=== PATIENT | female | born 1970 | race Asian ===

== ENCOUNTER → 2016-07-28 | Outpatient (CLI) | payer BC ==
--- NOTE | 2016-07-28 10:54 | USB ---
Reason for exam: clinical finding. Indicated problem(s): palpable abnormality in the left breast. Physical Findings: Nurse did not find any significant physical abnormalities on exam. US Breast LT Left breast ultrasound including all four quadrants, the retroareolar region and axilla demonstrates a 0.2 x 0.3 x 0.2cm oval lesion too small to characterize at 2 o'clock, a 0.7 x 0.5 x 0.5cm oval, cystic lesion at 4 o'clock and a 4.3 x 3.8 x 3.2cm oval, mixed lesion at the retroareolar position. These results were verbally communicated with the patient and result sheet given to the patient on 07/28/16. ASSESSMENT: Suspicious, BI-RAD 4 RECOMMENDATION: Aspiration of the left breast. Called Dr. Jensen with mammographic findings and has scheduled an appointment for the patient for 08/17/16 at 10:[address] Faye. Aspiration scheduled for 08/03/16 at 1:00. PRELIMINARY REPORT CALLED AND FAXED TO DR. FAYE ON 08/07/16 AT 300/TP.
== END | disposition home or self-care (01) ==
LOC: RADUSWWP 07:27
PROVIDERS: ATTEND Obstetrics & Gynecology
DX: R92.8 Other abnormal and inconclusive findings on diagnostic imaging of breast (principal); N63 Unspecified lump in breast

== ENCOUNTER → 2016-08-03 | Day surgery (SDC) | payer BC ==
[~2016-08-03] MED LIST: ALPRAZolam 0.25 MG TAB ONE; LIDOCAINE 1% INJ 10MG/ML (20 ML MDV) ONE; SODIUM BICARB 4% 5 ML VIAL (0.48 MEQ/ML) ONE
--- NOTE | 2016-08-03 15:09 | USB ---
EXAMINATION TYPE: US breast aspiration single LT, MG diagnostic mammo LT, post procedure mammogram. DATE OF EXAM: 08/03/2016 1:45 PM CLINICAL HISTORY: 46-year-old female abnormal mammogram and palpable abnormality left breast. TECHNIQUE: Ultrasound guided left breast cyst aspiration. COMPARISON: 07/28/2016 and 02/25/2016. FINDINGS: The procedure of ultrasound guided cyst aspiration was explained to the patient. Benefits, alternatives, and risks were discussed. An informed consent was then obtained. The patient was placed in supine positioning for imaging and for the procedure. The overlying skin was prepped and draped in usual sterile fashion. Lidocaine buffered with bicarbonate was used as anesthetic into the skin and subcutaneous tissue up to area of concern in the left breast. Under ultrasound guidance, a standard 18-gauge spinal needle was inserted into the left breast cyst and aspiration yielded 27 mL of murky fluid. Fluid was collected and sent to the lab for analysis. Following this, a ribbon clip was left at the site of aspiration and collapsed cyst. The patient tolerated the procedure well without any immediate complication. The patient was kept in the radiology department for short stay after the procedure and then discharged home in stable condition. Postprocedure mammogram shows ribbon clip in place with interval disappearance of the large left breast mass. IMPRESSION: Successful, uncomplicated ultrasound guided left breast cyst aspiration; fluid analysis is pending. Pathology Results: High Risk BREAST, LEFT, ASPIRATE: PENDING CONSULTATION, SEE ADDENDUM/FINAL DIAGNOSIS. ADDENDUM REPORT BREAST, LEFT, FINE NEEDLE ASPIRATION-CYTOSPIN PREPARATIONS AND CALL BLOCK ([id number]; 08/03/2016) ATYPICAL CELLS PRESENT. Recommendation Surgical consult of the left breast. AVERY
== END ==
LOC: RADUSWWP 11:59
PROVIDERS: ATTEND Surgery
DX: N60.02 Solitary cyst of left breast (principal); R92.8 Other abnormal and inconclusive findings on diagnostic imaging of breast
CPT/HCPCS: 88108; 88305; 76942; 19000; G0206; A4648; J2001

== ENCOUNTER 2016-08-25 06:50 | Day surgery (SDC) | payer BC ==
--- NOTE | 2016-08-18 06:19 | HP ---
DATE OF ADMISSION: CHIEF COMPLAINT: Left breast cyst. HISTORY OF PRESENT ILLNESS: The patient is a 46-year-old female who underwent a recent aspiration of a large left breast cyst measuring 4.5 cm after the patient began complaining of a new mass in the left breast that began rather abruptly. She does have a history of cysts in the past. She has had one excised when [place] was [place] the [place] in the past. That was benign. The recent aspiration; however, revealed some atypical cells suspicious for possible underlying malignancy. A clip was left at that time. The patient was able to notice some recurrence of the cystic lesion although not nearly as large. She denies any family history of breast cancer. Her last mammogram in February of last year was normal. PAST MEDICAL HISTORY: Denies. Past surgical history is breast biopsy. MEDICATIONS: None. ALLERGIES: None. PHYSICAL EXAM: GENERAL: Well-developed, well-nourished female in no distress. HEENT is normocephalic. Sclerae anicteric. Right breast without mass or adenopathy. Left breast with a mass present at the 12 o'clock location, measuring about 2.5 x 1.5 cm, minimally tender. IMPRESSION: A 46-year-old female with atypical left breast cyst. PLAN: Will proceed with excision of the cyst with wire localization and guidance. The risks of bleeding, infection, numbness, dimpling, wound formation, nipple discharge and potential need for additional surgery were discussed. She understands and wishes to proceed.
[2016-08-22 14:21] VITALS: BMI 20.2
[~2016-08-25 06:50] MED LIST changes: -ALPRAZolam 0.25 MG TAB ONE; +DEXAMETHASONE SOD PHOSPHATE 10 MG/ML 1 ML VIAL IV ONE; +HEPARIN SODIUM,PORCINE 5,000 UNIT/ML 1 ML VIAL SQ ONE; +HYDROmorphone 1 MG/ML 1 ML SYRINGE IVP PRN; +LACTATED RINGERS 1,000 ML IV SCH; -LIDOCAINE 1% INJ 10MG/ML (20 ML MDV) ONE; +MIDAZOLAM 2 MG/2 ML VIAL IV PRN; +ONDANSETRON 4 MG/2 ML VIAL IVP ONE; +Pre Op ABX Message 1 EACH MISC MISCELLANE ONE; +SCOPOLAMINE 1.5MG/72HR PATCH TRANSDERM ONE; -SODIUM BICARB 4% 5 ML VIAL (0.48 MEQ/ML) ONE
[2016-08-25] MEDS ORDERED: ALPRAZolam 0.5 MG TAB PO ONE ×2 (07:16)
[2016-08-25] MEDS ORDERED: BUPIVACAIN-EPI 0.25%-1:200,000 30 ML VIAL SQ ONE ×2 (10:31→11:32)
[2016-08-25] MEDS ORDERED: fentaNYL (PF) 50 MCG/ML 2 ML AMP ONE (11:10)
[2016-08-25] MEDS ORDERED: MIDAZOLAM 2 MG/2 ML VIAL ONE (11:10)
[2016-08-25] MEDS ORDERED: SUCCINYLCHOLINE CHLORIDE 100 MG/5 ML SYR IV ONE (11:10)
[2016-08-25] MEDS ORDERED: PROPOFOL 10 MG/ML 20 ML VIAL IV ONE (11:10)
[2016-08-25] MEDS ORDERED: LIDOCAINE 1% INJ 10MG/ML (20 ML MDV) ONE ×2 (11:10→13:28)
[2016-08-25] MEDS ORDERED: LACTATED RINGERS 1,000 ML IV ONE ×3 (11:36)
[2016-08-25] MEDS ORDERED: BUPIVACAINE (PF) 0.25% 30 ML VIAL SQ ONE (11:57)
--- NOTE | 2016-08-25 11:59 | MM ---
EXAMINATION TYPE: MG pre op needle loc LT, MG surgical specimen LT DATE OF EXAM: 08/25/2016 9:10 AM COMPARISON: Prior mammogram August 03, 2016 and older studies. CLINICAL HISTORY: Ultrasound-guided aspiration with atypical pathology results. TECHNIQUE: Needle localization with wire placement and surgical excision of area of concern in the left breast. FINDINGS: The procedure of needle localization with wire placement and than surgical excision was explained to the patient. Benefits, alternatives, and risks were discussed. An informed consent was then obtained. The shortest pathway for procedure was chosen. Shortest pathway was felt to be medial approach. The overlying skin was prepped and draped in usual sterile fashion. Lidocaine buffered with bicarbonate was used as anesthetic into the skin and subcutaneous tissue up to the level of area of concern. A 5 cm needle was used. It was placed via a medial approach under mammographic guidance. Subsequent 90 degrees mammogram show the needle to be in satisfactory position relative to the targeted area. At this point, wire was placed and the needle was withdrawn. The wire was fixed to patient's skin. Images were marked for surgeon by technologist. The patient tolerated the procedure well without any immediate complication. The patient was kept in the radiology department for short stay after the procedure and then taken to surgery for surgical excision. Targeted biopsy clip and wire are identified in specimen mammogram. The patient was kept in hospital for short stay after the procedure and then discharged home in stable condition. IMPRESSION: Successful, uncomplicated needle localization with wire placement and surgical excision of targeted biopsy clip in the left breast, full pathology results to follow. Pathology Results: Benign A. BREAST, LEFT, EXCISION BIOPSY: FIBROCYSTIC CHANGES INCLUDING FIBROSIS, SMALL CYSTS, ADENOSIS AND USUAL TYPE DUCTAL HYPERPLASIA. FOCAL FIBROSIS WITH PROMINENT HISTIOCYTES, MIXED INFLAMMATION AND FAT NECROSIS SUGGESTIVE OF RUPTURED CYST VERSUS PREVIOUS PROCEDURE RELATED CHANGES. B. BREAST, LEFT, SUBAREOLAR 12:00, EXCISION BIOPSY: CYST WALL WITH FEATURES OF RUPTURE AND ADJACENT FIBROCYSTIC CHANGES INCLUDING FIBROSIS, CYSTS, USUAL TYPE DUCTAL HYPERPLASIA, COLUMNAR CELL HYPERPLASIA AND CHRONIC INFLAMMATION. Recommendation Follow up mammogram of the left breast in 6 months. Surgical consult of the left breast. (QUESTIONABLE DISCORDANT) AVERY
[2016-08-25 12:17] VITALS: TEMP 97.4
[2016-08-25] MEDS ORDERED: NALOXONE 0.4 MG/ML 1 ML VIAL IV PRN (12:38)
[2016-08-25] MEDS ORDERED: HYDROcodone/APAP 5-325MG 1 EACH TAB PO PRN (12:38)
--- NOTE | 2016-08-25 12:41 | P.PCN ---
Date of Procedure: 08/25/16 Procedure(s) Performed: PREOPERATIVE DIAGNOSIS: Left breast cyst POSTOPERATIVE DIAGNOSIS: Same PROCEDURE: Left Breast wire localization biopsy with excision left breast cyst SURGEON: Yunier EBL: Minimal ANESTHESIA: Sedation plus local COMPLICATIONS: None OPERATIVE PROCEDURE: Patient was placed on the operating room table in the supine position. The patient's breast was prepped and draped in usual sterile fashion. A curvilinear incision was made adjacent to the wire entrance site along the periareolar border. The wire was entering the breast at the 8 to 9 o' clock position directed to the subareolar location. I followed the wire down into the breast tissue. The breast tissue around the tip of the wire was fully excised using electrocautery. The specimen was sent for specimen radiogram. The clip was present within the specimen. This was approximately 1.5-2 cm inferior to the palpable cyst that the patient had described in the office. The cyst was present at the 12:00 location subareolar. The cyst was opened clear fluid was evacuated. The cyst wall was then excised using electrocautery. This was sent separately to pathology labeled rest cyst. The subcutaneous tissues were inspected. No bleeding was seen. The subcutaneous tissues were closed using 3-0 Vicryl sutures. The skin was closed using interrupted 4-0 Monocryl stitch. Steri-Strips and sterile dressings were applied. DISPOSITION: Stable to recovery room
[2016-08-25] MEDS ORDERED: KETOROLAC 30 MG/ML 1 ML VIAL IVP ONE (12:47)
[2016-08-25 13:04] VITALS: RESP 16
[2016-08-25] MEDS ORDERED: SODIUM BICARB 4% 5 ML VIAL (0.48 MEQ/ML) ONE (13:28)
[2016-08-25] MEDS ORDERED: ACETAMINOPHEN TAB 325 MG TAB PO ONE (13:32)
[2016-08-25 13:52] VITALS: BP 114/75; PULSE 67
== END 2016-08-25 14:03 | disposition home or self-care (01) ==
LOC: OR 06:50
PROVIDERS: ATTEND Surgery
DX: N60.12 Diffuse cystic mastopathy of left breast (principal); N60.22 Fibroadenosis of left breast; N60.92 Unspecified benign mammary dysplasia of left breast; N64.1 Fat necrosis of breast
CPT/HCPCS: 81025; 88307; 76098; 19281; 19125; J2250; J1644; J1100; J2405; J2001; J3010; J1885; J0330; J2704

== ENCOUNTER 2016-09-16 11:19 | Inpatient (IN) | payer BC ==
--- NOTE | 2016-09-16 11:54 | ED ---
Skin/Abscess/FB HPI - General Source: patient, RN notes reviewed Mode of arrival: ambulatory Limitations: no limitations <Gregory Langley - Last Filed: 09/16/16 14:25> <Tito Walker - Last Filed: 09/16/16 15:30> - General Chief complaint: Skin/Abscess/Foreign Body Stated complaint: post op infection Time Seen by Provider: 09/16/16 11:38 - History of Present Illness Initial comments: 46-year-old female presents emergency Department chief complaint left breast redness. Patient states that she had a cyst removed by Dr. mae 3 weeks ago. Patient developed pain last week and which they had a follow-up appointment and told him to keep an eye for any redness and they would do a follow-up in one month. Patient developed redness over the last couple days with increased pain. Patient called surgeon today who advised her to come the emergency department. Patient denies fever, chills. Denies any drainage. (Gregory Langley) - Related Data Home Medications Medication Instructions Recorded Confirmed Acetaminophen Tab [Tylenol Tab] 500 mg PO Q6HR PRN 09/16/16 09/16/16 Allergies Allergy/AdvReac Type Severity Reaction Status Date / Time No Known Allergies Allergy Verified 09/16/16 12:21 Review of Systems ROS Other: All systems not noted in ROS Statement are negative. <Gregory Langley - Last Filed: 09/16/16 14:25> ROS Other: All systems not noted in ROS Statement are negative. <Tito Walker - Last Filed: 09/16/16 15:30> ROS Statement: Those systems with pertinent positive or pertinent negative responses have been documented in the HPI. Past Medical History Past Medical History: No Reported History Additional Past Medical History / Comment(s): LT BREAST MASS History of Any Multi-Drug Resistant Organisms: None Reported Past Surgical History: Breast Surgery Additional Past Surgical History / Comment(s): OVARIAN CYSTECTOMY Past Anesthesia/Blood Transfusion Reactions: Motion Sickness Past Psychological History: No Psychological Hx Reported Smoking Status: Never smoker Past Alcohol Use History: None Reported Past Drug Use History: None Reported - Past Family History Mother Family Medical History: No Reported History <Gregory Langley - Last Filed: 09/16/16 14:25> General Exam Limitations: no limitations General appearance: alert, in no apparent distress Eye exam: Present: normal appearance, PERRL, EOMI. Absent: scleral icterus, conjunctival injection, periorbital swelling Neck exam: Present: normal inspection, full ROM. Absent: tenderness, meningismus, lymphadenopathy Respiratory exam: Present: normal lung sounds bilaterally. Absent: respiratory distress, wheezes, rales, rhonchi, stridor Cardiovascular Exam: Present: regular rate, normal rhythm, normal heart sounds. Absent: systolic murmur, diastolic murmur, rubs, gallop, clicks Skin exam: Present: other (Left breast there are Steri-Strips in place there is a moderate amount of erythema extending from the 6 to 9 o'clock position there is moderate tenderness with palpation in firmness to the area exam performed with RAMON Reynolds) <Gregory Langley - Last Filed: 09/16/16 14:25> General appearance: alert, in no apparent distress Head exam: Present: atraumatic, normocephalic, normal inspection Eye exam: Present: normal appearance, PERRL, EOMI. Absent: scleral icterus, conjunctival injection, periorbital swelling ENT exam: Present: normal exam, mucous membranes moist Neck exam: Present: normal inspection. Absent: tenderness, meningismus, lymphadenopathy Respiratory exam: Present: normal lung sounds bilaterally. Absent: respiratory distress, wheezes, rales, rhonchi, stridor Cardiovascular Exam: Present: regular rate, normal rhythm, normal heart sounds. Absent: systolic murmur, diastolic murmur, rubs, gallop, clicks GI/Abdominal exam: Present: soft, normal bowel sounds. Absent: distended, tenderness, guarding, rebound, rigid Extremities exam: Present: normal inspection, full ROM, normal capillary refill. Absent: tenderness, pedal edema, joint swelling, calf tenderness Back exam: Present: normal inspection Neurological exam: Present: alert, oriented X3, CN II-XII intact Psychiatric exam: Present: normal affect, normal mood Skin exam: Present: warm, dry, intact, normal color. Absent: rash <Tito Walker - Last Filed: 09/16/16 15:30> Course <Gregory Langley - Last Filed: 09/16/16 14:25> <Tito Walker B - Last Filed: 09/16/16 15:30> Vital Signs 09/16/16 09/16/16 09/16/16 11:31 11:58 14:20 Temperature 98.5 F 98.3 F Pulse Rate 74 68 Respiratory 18 14 12 Rate Blood Pressure 127/82 141/88 120/80 O2 Sat by Pulse 100 100 Oximetry - Reevaluation(s) Reevaluation #1: 09/16/16 15:[address] Kern regarding infection, will see patient for I&D (Tito Walker) Medical Decision Making - Lab Data Result diagrams: 09/16/16 12:00 09/16/16 12:00 <Gregory Langley - Last Filed: 09/16/16 14:25> - Lab Data Result diagrams: 09/16/16 12:00 09/16/16 12:00 <Tito Walker - Last Filed: 09/16/16 15:30> - Medical Decision Making 46 female in the ER with postbiopsy abscess, patient will be admitted to general surgery for evaluation of abscess and antibiotics (Tito Walker) - Lab Data Lab Results 09/16/16 09/16/16 Range/Units 12:00 12:00 WBC 7.3 (3.8-10.6) k/uL RBC 4.15 (3.80-5.40) m/uL Hgb 12.6 (11.4-16.0) gm/dL Hct 37.5 (34.0-46.0) % MCV 90.4 (80.0-100.0) fL MCH 30.3 (25.0-35.0) pg MCHC 33.5 (31.0-37.0) g/dL RDW 12.6 (11.5-15.5) % Plt Count 299 (150-450) k/uL Neutrophils % 75 % Lymphocytes % 15 % Monocytes % 7 % Eosinophils % 2 % Basophils % 0 % Neutrophils # 5.5 (1.3-7.7) k/uL Lymphocytes # 1.1 (1.0-4.8) k/uL Monocytes # 0.5 (0-1.0) k/uL Eosinophils # 0.1 (0-0.7) k/uL Basophils # 0.0 (0-0.2) k/uL Sodium 141 (137-145) mmol/L Potassium 4.6 (3.5-5.1) mmol/L Chloride 102 (98-107) mmol/L Carbon Dioxide 29 (22-30) mmol/L Anion Gap 10 mmol/L BUN 11 (7-17) mg/dL Creatinine 0.67 (0.52-1.04) mg/dL Est GFR (MDRD) Af Amer >60 (>60 ml/min/1.73 sqM) Est GFR (MDRD) Non-Af >60 (>60 ml/min/1.73 sqM) Glucose 92 (74-99) mg/dL Calcium 9.2 (8.4-10.2) mg/dL Disposition <Gregory Langley - Last Filed: 09/16/16 14:25> <Tito Walker - Last Filed: 09/16/16 15:30> Clinical Impression: Left breast abscess, Postoperative infection of breast incision Disposition: ADMITTED IP TO THIS HOSP Condition: Stable
[2016-09-16 12:11] LABS: Basophils % (A) 0 %; CH 30.1; CHCM 33.5; Eosinophils # (A) 0.1 k/uL (0-0.7); Eosinophils % (A) 2 %; HCT 37.5 % (34.0-46.0); HDW 2.58; HGB 12.6 gm/dL (11.4-16.0); Luc # (Auto) 0.08; Luc % (Auto) 1; Lymphocytes # (A) 1.1 k/uL (1.0-4.8); Lymphocytes % (A) 15 %; MCH 30.3 pg (25.0-35.0); MCHC 33.5 g/dL (31.0-37.0); MCV 90.4 fL (80.0-100.0); Mean Platelet Volume 7.5; Monocytes # (A) 0.5 k/uL (0-1.0); Monocytes % (A) 7 %; Neutrophils # (A) 5.5 k/uL (1.3-7.7); Neutrophils % (A) 75 %; RBC 4.15 m/uL (3.80-5.40); RDW 12.6 % (11.5-15.5); WBC 7.3 k/uL (3.8-10.6); WBC (Perox) 7.21
[2016-09-16 12:19] LABS: Anion Gap 10 mmol/L; Blood Urea Nitrogen 11 mg/dL (7-17); Calcium 9.2 mg/dL (8.4-10.2); Carbon Dioxide 29 mmol/L (22-30); Chloride 102 mmol/L (98-107); Glucose 92 mg/dL (74-99); Non-African American GFR(MDRD) >60 (>60 ml/min/1.73 sqM); Sodium 141 mmol/L (137-145)
[2016-09-16 12:20] LABS: Potassium 4.6 mmol/L (3.5-5.1)
--- NOTE | 2016-09-16 12:49 | USB ---
EXAMINATION TYPE: US breast limited LT DATE OF EXAM: 09/16/2016 12:19 PM COMPARISON: 07/28/2016 and 08/03/2016 CLINICAL HISTORY: 46-year-old female with Pain/post-op infection. Left breast pain following recent c yst aspiration and needle loc TECHNIQUE: Targeted sonographic examination of the left breast at the painful site, subareolar region . FINDINGS: TECHNOLOGIST NOTES: Scanned left breast retroareolar area of pain: 6.4 x 3.0 x 6.2cm irregular compl ex collection without internal vascularity. The overall appearance is more complex and heterogeneous than the originally aspirated cyst on 017. IMPRESSION: BI-RADS 4 - suspicious (given atypical cells on aspirate of 08/03/2016). RECOMMENDATION: 1. Complex irregular collection measuring up to 6.4 cm in the subareolar left breast. Overall appeara nce is more heterogeneous and larger than the originally aspirated cyst on 08/03/2016. Breast abscess is not excluded and clinical correlation is recommended. Note that atypical cells were noted in the a spirate and appropriate surgical management is recommended.
[2016-09-16] MEDS ORDERED: IV VANCOMYCIN PER PHARMACY 1 EACH MISC MISCELLANE PRN (14:25)
[2016-09-16] MEDS ORDERED: MORPHINE SULFATE 4 MG/ML SYRINGE IV PRN (14:26)
[2016-09-16] MEDS ORDERED: ONDANSETRON 4 MG/2 ML VIAL IVP PRN (14:26)
[2016-09-16] MEDS ORDERED: NALOXONE 0.4 MG/ML 1 ML VIAL IV PRN (14:26)
[2016-09-16] MEDS ORDERED: LORazepam 2 MG/ML SYRINGE IV PRN (14:26)
[2016-09-16] MEDS ORDERED: VANCOMYCIN 1,000 MG in SODIUM CHLORIDE 0.9% 250 ML IVPB STA (14:28)
[2016-09-16 17:11] VITALS: BMI 18.9
[2016-09-16] MEDS: ACETAMINOPHEN TAB 325 MG TAB PO PRN (17:50)
[2016-09-16] MEDS ORDERED: VANCOMYCIN 1,000 MG in SODIUM CHLORIDE 0.9% 250 ML IVPB SCH (22:00)
[2016-09-17] MEDS: ACETAMINOPHEN TAB 325 MG TAB PO PRN (00:13)
[2016-09-17] MEDS: AMPICILLIN-SULBACTAM 3 GM in SODIUM CHLORIDE 0.9% 100 ML IVPB SCH ×4 (00:13→23:30)
[2016-09-17] MEDS: HYDROcodone/APAP 5-325MG 1 EACH TAB PO PRN ×3 (04:05→23:30)
--- NOTE | 2016-09-17 07:59 | P.GSHP ---
History of Present Illness H&P Date: 09/17/16 Chief Complaint: Breast abscess Patient here today admitted through the emergency department. She has had progressive left breast pain the last several days. She had a recent left breast cystectomy with biopsy. Denies fevers. Redness was spreading. White blood cell count is normal. Last night she developed spontaneous drainage from the incision site. This is bloody in nature. Postoperative the patient did have a hematoma. - Review of Systems Comment: The patient denies any acute changes in his vision or hearing, no dysphagia or odynophagia, no chest pain or shortness of breath, no dysuria or hematuria, no headache, no runny nose, no rectal bleeding or melena, no unexplained weight loss [] Past Medical History Past Medical History: No Reported History Additional Past Medical History / Comment(s): LT BREAST MASS History of Any Multi-Drug Resistant Organisms: None Reported Past Surgical History: Breast Surgery Additional Past Surgical History / Comment(s): OVARIAN CYSTECTOMY Past Anesthesia/Blood Transfusion Reactions: Motion Sickness Past Psychological History: No Psychological Hx Reported Smoking Status: Never smoker Past Alcohol Use History: None Reported Past Drug Use History: None Reported - Past Family History Mother Family Medical History: Coronary Artery Disease (CAD), Diabetes Mellitus, Hyperlipidemia Father Family Medical History: Coronary Artery Disease (CAD) Additional Family Medical History / Comment(s): father from heart disease at 86 Medications and Allergies Home Medications Medication Instructions Recorded Confirmed Type Acetaminophen Tab [Tylenol Tab] 500 mg PO Q6HR PRN 09/16/16 09/16/16 History Allergies Allergy/AdvReac Type Severity Reaction Status Date / Time No Known Allergies Allergy Verified 09/16/16 12:21 Surgical - Exam Vital Signs Temp Pulse Resp BP Pulse Ox 98.5 F 74 18 127/82 100 09/16/16 11:31 09/16/16 11:31 09/16/16 11:31 09/16/16 11:31 09/16/16 11:31 Physical exam: General: Well-developed, well-nourished HEENT: Normocephalic, sclerae nonicteric Abdomen: Nontender, nondistended Breast: Left breast with induration and erythema and tenderness, incision with a small amount of bloody drainage, no odor Extremities: No edema Neuro: Alert and oriented Results - Labs 09/16/16 12:00 09/16/16 12:00 Assessment and Plan (1) Left breast abscess Narrative/Plan: We'll proceed with incision and drainage. Cultures will be taken. Status: Acute
[2016-09-17] MEDS ORDERED: HEPARIN SODIUM,PORCINE 5,000 UNIT/ML 1 ML VIAL SQ STA (08:00)
[2016-09-17] MEDS ORDERED: MIDAZOLAM 2 MG/2 ML VIAL ONE (08:05)
[2016-09-17] MEDS ORDERED: fentaNYL (PF) 50 MCG/ML 2 ML AMP ONE (08:05)
[2016-09-17] MEDS ORDERED: PROPOFOL 10 MG/ML 20 ML VIAL IV ONE ×2 (08:05)
[2016-09-17] MEDS ORDERED: LACTATED RINGERS 1,000 ML IV ONE (08:10)
--- NOTE | 2016-09-17 08:50 | P.PCN ---
Date of Procedure: 09/17/16 Procedure(s) Performed: PREOPERATIVE DIAGNOSIS: Left breast abscess/hematoma POSTOPERATIVE DIAGNOSIS: Same PROCEDURE: Incision and drainage SURGEON: Yunier EBL: Minimal ANESTHESIA: General COMPLICATIONS: None OPERATIVE PROCEDURE: Patient place never table in supine position. The patient' s left breast was prepped and draped in usual sterile fashion. There were 2 small areas of dehiscence along the incision draining old bloody fluid. The incision inferiorly was reopened. Approximately 30 mL of old blood was evacuated. There was no odor to this. This was cultured. The area was irrigated with saline. Further bleeding was seen. The wound was then packed with Aquacel silver rope. DISPOSITION: Stable to recovery room
[2016-09-18] MEDS: HYDROcodone/APAP 5-325MG 1 EACH TAB PO PRN ×3 (06:58→16:36)
[2016-09-18] MEDS: AMPICILLIN-SULBACTAM 3 GM in SODIUM CHLORIDE 0.9% 100 ML IVPB SCH ×2 (06:59→16:36)
--- NOTE | 2016-09-18 13:31 | P.PN ---
Subjective Principal diagnosis: Left breast abscess Patient says her pain is improved. She is afebrile. Gram stain did show some bacilli. Objective - Vital Signs Vital signs: Vital Signs Temp 98.0 F 09/18/16 07:30 Pulse 62 09/18/16 07:30 Resp 17 09/18/16 07:30 BP 103/68 09/18/16 07:30 Pulse Ox 100 09/18/16 07:30 Intake & Output 09/17/16 09/18/16 09/18/16 18:59 06:59 18:59 Intake Total 550 350 480 Output Total 10 Balance 540 350 480 Weight 50 kg Intake: IV 550 Oral 350 480 Output: Estimated Blood Loss 10 Other: Voiding Method Toilet Toilet # Voids 1 1 - Exam Still some induration from 6 to 9:00, erythema improved, mild tenderness, wound clean - Labs CBC & Chem 7: 09/16/16 12:00 09/16/16 12:00 Labs: Microbiology - Last 24 Hours (Table) 09/17/16 08:37 Gram Stain - Preliminary Breast - Left Wound Culture - Preliminary 09/17/16 08:37 Anaerobic Culture - Preliminary Breast - Left Assessment and Plan (1) Left breast abscess Narrative/Plan: Continue IV antibiotics. Follow cultures. Begin local wound care today. Anticipate discharge tomorrow. Status: Acute
[2016-09-19] MEDS: HYDROcodone/APAP 5-325MG 1 EACH TAB PO PRN ×3 (08:49→14:28)
[2016-09-19] MEDS: AMPICILLIN-SULBACTAM 3 GM in SODIUM CHLORIDE 0.9% 100 ML IVPB SCH ×4 (08:52→16:27)
[2016-09-19 13:59] VITALS: BP 121/74; PULSE 65; RESP 16; TEMP 98.7
--- NOTE | 2016-09-19 16:54 | P.DS ---
Providers Date of admission: 09/19/16 09:09 Expected date of discharge: 09/19/16 Attending physician: Tam Faye Primary care physician: Sonny Russell - Discharge Diagnosis(es) (1) Left breast abscess Doing well today. Her pain is improved. She is afebrile. Tolerated her dressing change yesterday. She was admitted for a hematoma left breast that was thought to be infected. Her cultures are negative however her Gram stain did show a few bacteria. We will continue to treat her as a postoperative infection at this time. Continue local wound care. Stable for discharge today. Follow-up in the office 1 week. Current Visit: Yes Status: Acute Patient Condition at Discharge: Stable Plan - Discharge Summary New Discharge Prescriptions: Amoxicillin/Potassium Clav [Augmentin 500-125 Tablet] 1 tab PO Q12HR #14 tab HYDROcodone/APAP 5-325MG [Melvin 5-325] 1 tab PO Q4HR PRN #30 tab PRN Reason: pain Hydrocodone/Acetaminophen [Melvin 5-325] 1 - 2 each PO Q4HR PRN #30 tab PRN Reason: pain Discharge Medication List Acetaminophen Tab [Tylenol Tab] 500 mg PO Q6HR PRN 09/16/16 [History] Amoxicillin/Potassium Clav [Augmentin 500-125 Tablet] 1 tab PO Q12HR #14 tab [Rx] HYDROcodone/APAP 5-325MG [Melvin 5-325] 1 tab PO Q4HR PRN #30 tab 09/19/16 [Rx] Hydrocodone/Acetaminophen [Melvin 5-325] 1 - 2 each PO Q4HR PRN #30 tab 09/19/16 [Rx] Follow up Appointment(s)/Referral(s): Tam Faye MD [Medical Doctor] - 09/28/16 10:30 am Sonny Russell MD [Primary Care Provider] - 10/13/16 11:15 am [facility], [NON-STAFF] - 1 Week Patient Instructions/Handouts: Wound Infection (DC) Activity/Diet/Wound Care/Special Instructions: LIGHT ACTIVITY, SHOWER DAILY BEFORE DRESSING CHANGES NO TUB BATHS, SWIMMING OR SOAKING, DIET TOLERATED OK TO DRIVE, PAIN MEDICATIONS ORDERED. TAKE ORAL ANTIBIOTICS PRESCRIBED. DAILY DRESSING CHANGES TO LEFT BREAST: REMOVE PACKING AND DRESSING SHOWER AND REPLACE PACKING WITH AQUACEL SILVER ROPE AND COVER WITH 4X4 GAUZE.
== END 2016-09-19 17:01 | disposition home health service (06) | DRG 863 ==
LOC: EC 11:19 → 3SUR 14:26 → UNDOADMOB 14:26 → 3SUR 14:54 → OBSVTOIN 15:29 → 3SUR 09-17 09:07 → OBSVTOIN 09-19 09:09 → INTOOBSV 09-19 09:09 → UNDODISIN 09-19 17:01
PROVIDERS: ADMIT Surgery; ATTEND Surgery
PROC: 0H9U0ZZ Drainage of Left Breast, Open Approach (ICD-10-PCS; principal; 2016-09-17 08:00)
DX: T81.4XXA Infection following a procedure, initial encounter (principal); Z82.49 Family history of ischemic heart disease and other diseases of the circulatory system; N61.1 Abscess of the breast and nipple
CPT/HCPCS: 36415; 80048; 85025; 87040; 87070; 87075; 87205; 96365; 96366; 96367; 99284

== ENCOUNTER → 2017-03-14 | Outpatient (CLI) | payer BC ==
--- NOTE | 2017-03-14 08:01 | MM ---
Reason for exam: additional evaluation requested from prior study. Last mammogram was performed 7 months ago. History: Benign MG pre op needle loc LT of the left breast, August 25, 2016. High risk US breast aspiration single LT of the left breast, August 03, 2016. Physical Findings: Nurse did not find any significant physical abnormalities on exam. MG Diagnostic Mammo w CAD DANIA Bilateral CC and MLO view(s) were taken. Prior study comparison: August 03, 2016, left breast MG diagnostic mammo LT wo CAD. July 28, 2016, left breast US breast LT. February 25, 2016, bilateral MG screening mammo w CAD. The breast tissue is extremely dense which could obscure a lesion on mammography. Post biopsy change on the left breast. These results were verbally communicated with the patient and result sheet given to the patient on 03/14/17. ASSESSMENT: Benign, BI-RAD 2 RECOMMENDATION: Routine screening mammogram of both breasts in 1 year.
== END | disposition home or self-care (01) ==
LOC: RADMAMWWP 06:52
PROVIDERS: ATTEND Surgery
DX: R92.8 Other abnormal and inconclusive findings on diagnostic imaging of breast (principal)

== ENCOUNTER 2018-03-08 09:27 | Day surgery (SDC) | payer BC ==
[2018-03-06 12:22] VITALS: BMI 20.4
[~2018-03-08 09:27] MED LIST changes: -DEXAMETHASONE SOD PHOSPHATE 10 MG/ML 1 ML VIAL IV ONE; -HEPARIN SODIUM,PORCINE 5,000 UNIT/ML 1 ML VIAL SQ ONE; -HYDROmorphone 1 MG/ML 1 ML SYRINGE IVP PRN; +LIDOCAINE 1% 20 ML VIAL (10MG/ML) FOR IV START INTRADERMA PRN; -MIDAZOLAM 2 MG/2 ML VIAL IV PRN; -ONDANSETRON 4 MG/2 ML VIAL IVP ONE; -Pre Op ABX Message 1 EACH MISC MISCELLANE ONE; -SCOPOLAMINE 1.5MG/72HR PATCH TRANSDERM ONE
[2018-03-08 10:22] VITALS: RESP 16; TEMP 97.9
[2018-03-08] MEDS ORDERED: LIDOCAINE 1% INJ 10MG/ML (20 ML MDV) ONE (10:56)
[2018-03-08] MEDS ORDERED: PROPOFOL 10 MG/ML 20 ML VIAL IV ONE (10:56)
--- NOTE | 2018-03-08 11:12 | P.PCN ---
Date of Procedure: 03/08/18 Procedure(s) Performed: BRIEF HISTORY: Patient is a 48-year-old pleasant white female, scheduled for an elective colonoscopy as a part of evaluation of screening for colorectal neoplasia. PROCEDURE PERFORMED: Colonoscopy. PREOPERATIVE DIAGNOSIS: Screening for colon cancer. IV sedation per Anesthesia. PROCEDURE: After informed consent was obtained, the patient, was brought into the endoscopy unit. IV sedation was administered by Anesthesia under continuous monitoring. Digital rectal examination was normal. Initially the Olympus CF- 160 flexible video colonoscope was then inserted in the rectum, gradually advanced into the cecum without any difficulty. Careful examination was performed as the scope was gradually being withdrawn. Ileocecal valve and the appendiceal orifice were visualized and appeared normal. Prep was excellent. Mucosa of the cecum, ascending colon, transverse colon, descending colon, sigmoid colon, and rectum appeared normal. Retroflexion was performed in the rectum and no lesions were seen. The patient tolerated the procedure well. IMPRESSION: Normal-appearing colon from rectum to cecum with no evidence of colorectal neoplasia. RECOMMENDATIONS: Findings of this examination were discussed with the patient as well as a family. She was advised to have a repeat screening colonoscopy in 10 years.
[2018-03-08 11:32] VITALS: BP 116/71; PULSE 76
== END 2018-03-08 11:52 | disposition home or self-care (01) ==
LOC: ORWHC2ENDO 09:27
PROVIDERS: ATTEND Internal Medicine Gastroenterology
DX: Z12.11 Encounter for screening for malignant neoplasm of colon (principal); Z88.1 Allergy status to other antibiotic agents
CPT/HCPCS: 81025; J2001; J2704; G0121

== ENCOUNTER → 2018-03-22 | Outpatient (CLI) | payer BC ==
--- NOTE | 2018-03-26 11:13 | MM ---
Reason for exam: screening (asymptomatic). Last mammogram was performed 1 year ago. History: Benign MG pre op needle loc LT of the left breast, August 25, 2016. High risk US breast aspiration single LT of the left breast, August 03, 2016. Physical Findings: A clinical breast exam by your physician is recommended on an annual basis and results should be correlated with mammographic findings. MG Screening Mammo w CAD Bilateral CC and MLO view(s) were taken. Prior study comparison: March 14, 2017, bilateral MG diagnostic mammo w CAD [facility]. February 25, 2016, bilateral MG screening mammo w CAD. October 20, 2014, bilateral MG screening mammo w CAD. The breast tissue is heterogeneously dense. This may lower the sensitivity of mammography. There is chronic nodularity in the right posterior upper outer quadrant. Asymmetric density anterior to middle depth right breast just medial to the retroareolar plane appear more defined. ASSESSMENT: Incomplete: need additional imaging evaluation, BI-RAD 0 RECOMMENDATION: Special view mammogram of the right breast. If lesion persists on supplemental views, image directed ultrasound is recommended. [facility] will attempt to contact patient to return for supplemental views and ultrasound if indicated.
== END | disposition home or self-care (01) ==
LOC: RADMAMWWP 07:00
PROVIDERS: ATTEND Internal Medicine
DX: Z12.31 Encounter for screening mammogram for malignant neoplasm of breast (principal)
CPT/HCPCS: 77067

== ENCOUNTER → 2018-04-01 | Outpatient (CLI) | payer BC ==
--- NOTE | 2018-04-01 12:01 | MM ---
Reason for exam: additional evaluation requested from abnormal screening. Last mammogram was performed less than 1 month ago. History: Benign MG pre op needle loc LT of the left breast, August 25, 2016. High risk US breast aspiration single LT of the left breast, August 03, 2016. Physical Findings: Nurse did not find any significant physical abnormalities on exam. MG 3D Work Up W/Cad RT Spot compression CC, spot compression MLO, and LM view(s) were taken of the right breast. Prior study comparison: March 22, 2018, bilateral MG screening mammo w CAD. March 14, 2017, bilateral MG diagnostic mammo w CAD [facility]. The breast tissue is heterogeneously dense. This may lower the sensitivity of mammography. There is no discrete abnormality including area of concern. No significant new findings when compared with previous films. These results were verbally communicated with the patient and result sheet given to the patient on 04/01/18. ASSESSMENT: Negative, BI-RAD 1 RECOMMENDATION: Return to routine screening mammogram schedule for both breasts.
== END | disposition home or self-care (01) ==
LOC: RADMAMWWP 07:34
PROVIDERS: ATTEND Internal Medicine
DX: R92.8 Other abnormal and inconclusive findings on diagnostic imaging of breast (principal)
CPT/HCPCS: 77061; 77065

== ENCOUNTER → 2019-03-25 | Outpatient (CLI) | payer BC ==
--- NOTE | 2019-03-26 09:55 | MM ---
Reason for exam: screening (asymptomatic). Last mammogram was performed 1 year ago. History: Benign MG pre op needle loc LT of the left breast, August 25, 2016. High risk US breast aspiration single LT of the left breast, August 03, 2016. Physical Findings: A clinical breast exam by your physician is recommended on an annual basis and results should be correlated with mammographic findings. MG 3D Screening Mammo W/Cad Bilateral CC and MLO view(s) were taken. Prior study comparison: April 01, 2018, right breast MG 3d work up w/cad RT. March 22, 2018, bilateral MG screening mammo w CAD. The breast tissue is extremely dense which could obscure a lesion on mammography. There are two stable right upper outer quadrant masses at anterior and posterior depth. No suspicious abnormality. Excisional change on the left. No significant changes when compared with prior studies. ASSESSMENT: Benign, BI-RAD 2 RECOMMENDATION: Routine screening mammogram of both breasts in 1 year.
== END | disposition home or self-care (01) ==
LOC: RADMAMWWP 09:57
PROVIDERS: ATTEND Internal Medicine
DX: Z12.31 Encounter for screening mammogram for malignant neoplasm of breast (principal)
CPT/HCPCS: 77063; 77067

== ENCOUNTER → 2020-05-05 | Outpatient (CLI) | payer BC ==
--- NOTE | 2020-05-06 11:18 | MM ---
Reason for exam: screening (asymptomatic). Last mammogram was performed 1 year and 1 month ago. History: Benign MG pre op needle loc LT of the left breast, August 25, 2016. High risk US breast aspiration single LT of the left breast, August 03, 2016. Physical Findings: A clinical breast exam by your physician is recommended on an annual basis and results should be correlated with mammographic findings. MG 3D Screening Mammo W/Cad Bilateral CC and MLO view(s) were taken. Prior study comparison: March 25, 2019, bilateral MG 3d screening mammo w/cad. April 01, 2018, right breast MG 3d work up w/cad RT. The breast tissue is heterogeneously dense. This may lower the sensitivity of mammography. Finding #1: There is a round mass in the upper outer quadrant, posterior position of the right breast. Finding #2: There are typically benign calcifications in the left breast. No significant changes in finding since March 25, 2019 and April 01, 2018. ASSESSMENT: Benign, BI-RAD 2 RECOMMENDATION: Routine screening mammogram of both breasts in 1 year.
== END | disposition home or self-care (01) ==
LOC: RADMAMWWP 06:55
PROVIDERS: ATTEND Internal Medicine
DX: Z12.31 Encounter for screening mammogram for malignant neoplasm of breast (principal)
CPT/HCPCS: 77063; 77067

== ENCOUNTER → 2020-06-03 | Outpatient (CLI) | payer BC ==
--- NOTE | 2020-06-03 10:29 | BD ---
EXAMINATION TYPE: Axial Bone Density DATE OF EXAM: 06/03/2020 COMPARISON: NONE CLINICAL HISTORY: N 95.1, postmenopausal Height: 5 FT 3 1/2 IN Weight: 120 FRAX RISK QUESTIONS: Alcohol (3 or more units per day): NO Family History (Parent hip fracture): YES Glucocorticoids (More than 3mos): NO (Ex: prednisone, prednisolone, methylprednisolone, dexamethasone, and hydrocortisone). History of Fracture in Adulthood: NO Secondary Osteoporosis: 1. Type 1 Diabetes: NO 2. Hyperthyroidism: NO 3. Menopause before 45: NO 4. Malnutrition: NO 5. Chronic liver disease: NO Rheumatoid Arthritis: NO Current Tobacco Use: NO RISK FACTORS HISTORY OF: Family History of Osteoporosis: NO Active: YES Diet low in dairy products/other sources of calcium: NO Postmenopausal woman: AGE 49 Take estrogen and/or progesterone medications: NONE Lost more than 2 inches in height since high school: NO MEDICATIONS: Additional Medications: NONE Additional History: EXAM MEASUREMENTS: Bone mineral densitometry was performed using the [email or web address] System. Bone mineral density as measured about the Lumbar spine is: ----- L1-L4(G/cm2): 1.046 T Score Values are as follows: ----- L2: -1.9 ----- L3: -1.0 ----- L4: -0.7 ----- L1-L4: -1.1 BASELINE Bone mineral density about the R hip (g/cm2): 0.903 Bone mineral density about the L hip (g/cm2): 0.940 T Score values are as follows: -----R Neck: -1.0 -----L Neck: -0.7 -----R Total: -0.7 -----L Total: -0.2 BASELINE IMPRESSION: Osteopenia (T Score between -2.5 and -1). There is slightly increased risk of fracture and the patient may be considered for treatment. Re-Screen 2-5 years. NOTE: T-SCORE=SD OF THE YOUNG ADULT MEAN.
== END | disposition home or self-care (01) ==
LOC: RADBDWWP 07:59
PROVIDERS: ATTEND Obstetrics & Gynecology
DX: M85.80 Other specified disorders of bone density and structure, unspecified site (principal); N95.1 Menopausal and female climacteric states
CPT/HCPCS: 77080

== ENCOUNTER → 2021-06-14 | Outpatient (CLI) | payer BC ==
--- NOTE | 2021-06-14 12:42 | MM ---
Reason for exam: screening (asymptomatic). Last mammogram was performed 1 year and 1 month ago. History: Patient is postmenopausal. Benign MG pre op needle loc LT of the left breast, August 25, 2016. High risk US breast aspiration single LT of the left breast, August 03, 2016. Physical Findings: A clinical breast exam by your physician is recommended on an annual basis and results should be correlated with mammographic findings. MG 3D Screening Mammo W/Cad Bilateral CC and MLO view(s) were taken. Prior study comparison: May 05, 2020, bilateral MG 3d screening mammo w/cad. March 25, 2019, bilateral MG 3d screening mammo w/cad. The breast tissue is heterogeneously dense. This may lower the sensitivity of mammography. There is no discrete abnormality. No significant changes when compared with prior studies. ASSESSMENT: Negative, BI-RAD 1 RECOMMENDATION: Routine screening mammogram of both breasts in 1 year.
== END | disposition home or self-care (01) ==
LOC: RADMAMWWP 07:34
PROVIDERS: ATTEND Internal Medicine Geriatric Medicine
DX: Z12.31 Encounter for screening mammogram for malignant neoplasm of breast (principal); Z78.0 Asymptomatic menopausal state
CPT/HCPCS: 77063; 77067

== ENCOUNTER → 2022-06-09 | Outpatient (CLI) | payer BC ==
--- NOTE | 2022-06-12 08:51 | BD ---
EXAMINATION TYPE: Axial Bone Density DATE OF EXAM: 06/09/2022 COMPARISON: 06/03/2020 CLINICAL HISTORY: 52 years year old Female. ICD-10 CODE: M85.88 OTH DISRD OF BONE DENSITY AND STRUCT URE Height: 62.5 IN Weight: 117 LBS FRAX RISK QUESTIONS: Family History (Parent hip fracture): YES MOTHER RISK FACTORS HISTORY OF: Active: YES Diet low in dairy products/other sources of calcium: YES Postmenopausal woman: AGE 49 MEDICATIONS: Additional Medications: CHOLESTEROL MEDS, VIT D EXAM MEASUREMENTS: Bone mineral densitometry was performed using the [employer] System. Bone mineral density as measured about the Lumbar spine is: ----- L1-L4(G/cm2): 1.036 T Score Values are as follows: ----- L1: -1.4 ----- L2: -2.1 ----- L3: -0.9 ----- L4: -0.6 ----- L1-L4: -1.2 Bone mineral density has: Decreased -0.1% since study of: 06/03/2020 Bone mineral density about the R hip (g/cm2): 0.864 Bone mineral density about the L hip (g/cm2): 0.926 T Score values are as follows: -----R Neck: -1.3 -----L Neck: -0.8 -----R Total: -0.9 -----L Total: -0.5 Bone mineral density has: Decreased -3.5% since study of: 06/03/2020 FRAX%s: The graph provided illustrates a 5.7 chance for a major osteoporotic fx and a 0.4 chance for the hips probability for fx in 10 years time. IMPRESSION: Normal (Values between +1 and -1 indicate normal bone mass). Consider repeating this study in 5 year s or sooner if there is some new clinical indication. NOTE: T-SCORE=SD OF THE YOUNG ADULT MEAN.
== END | disposition home or self-care (01) ==
LOC: RADBDWWP 14:40
PROVIDERS: ATTEND Obstetrics & Gynecology
DX: M85.88 Other specified disorders of bone density and structure, other site (principal)
CPT/HCPCS: 77080

== ENCOUNTER → 2022-06-16 | Outpatient (CLI) | payer BC ==
--- NOTE | 2022-06-19 08:53 | MM ---
Reason for Exam: Screening (asymptomatic). Last screening mammogram was performed 12 month(s) ago. Patient History: Menarche at age 10. First Full-Term at age 23. Postmenopausal. 08/25/2016, Benign Core Biopsy on the left side. 08/03/2016, High risk Cyst Aspiration on the left side. Risk Values: Vijaya 5 year model risk: 1.5%. NCI Lifetime model risk: 10.8%. Prior Study Comparison: 03/25/2019 Bilateral Screening Mammogram, [facility]. 05/05/2020 Bilateral Screening Mammogram, [facility]. 06/14/2021 Bilateral Screening Mammogram, [facility]. Tissue Density: The breast tissue is heterogeneously dense. This may lower the sensitivity of mammography. Findings: Analyzed By CAD. There is 5 mm round circumscribed mass in the right breast posterior upper aspect that is stable. Single benign appearing round calcification in the left breast is redemonstrated. There is no suspicious new group of microcalcifications or new suspicious mass in either breast. Overall Assessment: Benign, BI-RAD 2 Management: Screening Mammogram of both breasts in 1 year. A clinical breast exam by your physician is recommended on an annual basis and results should be correlated with mammographic findings. Electronically signed and approved by: Stuart Massey M.D.
== END | disposition home or self-care (01) ==
LOC: RADMAMWWP 07:48
PROVIDERS: ATTEND Internal Medicine Geriatric Medicine
DX: Z12.31 Encounter for screening mammogram for malignant neoplasm of breast (principal); Z78.0 Asymptomatic menopausal state
CPT/HCPCS: 77063; 77067

== ENCOUNTER → 2023-06-21 | Outpatient (CLI) | payer BC ==
--- NOTE | 2023-06-22 12:48 | MM ---
Reason for Exam: Screening (asymptomatic). Last screening mammogram was performed 12 month(s) ago. Patient History: Menarche at age 10. First Full-Term at age 23. Postmenopausal. 08/25/2016, Benign Core Biopsy on the left side. 08/03/2016, High risk Cyst Aspiration on the left side. Risk Values: Vijaya 5 year model risk: 1.6%. NCI Lifetime model risk: 10.7%. Prior Study Comparison: 05/05/2020 Bilateral Screening Mammogram, [facility]. 06/14/2021 Bilateral Screening Mammogram, [facility]. 06/16/2022 Bilateral MG 3D screening mammo w/cad, [facility]. Tissue Density: The breast tissue is heterogeneously dense. This may lower the sensitivity of mammography. Findings: Analyzed By CAD. There is no suspicious group of microcalcifications or new suspicious mass. Overall Assessment: Negative, BI-RAD 1 Management: Screening Mammogram of both breasts in [address] [facility] will attempt to contact patient to return for supplemental views and ultrasound if indicated. Patient should continue monthly self-breast exams. A clinical breast exam by your physician is recommended on an annual basis. This exam should not preclude additional follow-up of suspicious palpable abnormalities. Note on Vijaya scores and lifetime risk: 1. A Vijaya score greater than 3% is considered moderate risk. If this is the case, consider specialist referral to assess eligibility for a risk reducing agent. 2. If overall lifetime risk for the development of breast cancer is 20% or higher, the patient may qualify for future screening with alternating mammogram and breast MRI. Electronically signed and approved by: Roc Awad DO
== END | disposition home or self-care (01) ==
LOC: RADMAMWWP 14:37
PROVIDERS: ATTEND Internal Medicine Geriatric Medicine
DX: Z12.31 Encounter for screening mammogram for malignant neoplasm of breast (principal); Z78.0 Asymptomatic menopausal state
CPT/HCPCS: 77063; 77067

== ENCOUNTER → 2024-07-02 | Outpatient (CLI) | payer BC ==
--- NOTE | 2024-07-06 03:45 | MM ---
Reason for Exam: Screening (asymptomatic). Last mammogram was performed 1 year(s) and 1 month(s) ago. Patient History: Menarche at age 10. First Full-Term at age 23. Postmenopausal. 08/25/2016, Benign Core Biopsy on the left side. 08/03/2016, High risk Cyst Aspiration on the left side. Risk Values: Vijaya 5 year model risk: 1.4%. NCI Lifetime model risk: 8.1%. Prior Study Comparison: 06/14/2021 Bilateral Screening Mammogram, [facility]. 06/16/2022 Bilateral MG 3D screening mammo w/cad, [facility]. 06/21/2023 Bilateral MG 3D screening mammo w/cad, [facility]. Tissue Density: The breasts are heterogeneously dense, which may obscure small masses. Findings: Analyzed By CAD. The pattern is symmetrical. No significant interval change. Benign coarse calcifications within the left breast. No suspicious groups of microcalcifications, spiculated or lobular masses, architectural distortion or other secondary signs of malignancy are mammographically apparent. Overall Assessment: Benign, BI-RAD 2 Management: Screening Mammogram of both breasts in 1 year. A negative mammogram report should not preclude additional follow up of suspicious palpable abnormalities. Patient should continue monthly self breast exam. A clinical breast exam by your physician is recommended on an annual basis and results should be correlated with mammographic findings. Note on Vijaya scores and lifetime risk: 1. A Vijaya score greater than 3% is considered moderate risk. If this is the case, consider specialist referral to assess eligibility for a risk reducing agent. 2. If overall lifetime risk for the development of breast cancer is 20% or higher, the patient may qualify for future screening with alternating mammogram and breast MRI. [facility], , 07/06/2024 3:43 AM. Electronically signed and approved by: Pedrito Eric D.O. Radiologis
== END | disposition home or self-care (01) ==
LOC: RADMAMWWP 15:00
PROVIDERS: ATTEND Internal Medicine Geriatric Medicine
DX: Z12.31 Encounter for screening mammogram for malignant neoplasm of breast (principal); Z78.0 Asymptomatic menopausal state; R92.333 Mammographic heterogeneous density, bilateral breasts
CPT/HCPCS: 77063; 77067